=== PATIENT | female | born 1985 | race African-American/Black ===

== ENCOUNTER 2018-07-03 23:34 | Emergency (ER) | payer SELFPAY ==
[2018-07-04] MEDS ORDERED: Ketorolac Tromethamine 30 MG/ML VIAL ONE (00:29)
== END 2018-07-04 00:55 | disposition home or self-care (01) ==
LOC: ERS 23:34
DX: J01.90 Acute sinusitis, unspecified (principal)
CPT/HCPCS: 96372; J1885

== ENCOUNTER 2019-04-12 23:50 | Emergency (ER) | payer SELFPAY ==
[2019-04-13] MEDS ORDERED: Lidocaine 1% w/Epinephrine 1:100K 20 ML VIAL ONE (00:15)
== END 2019-04-13 00:54 | disposition home or self-care (01) ==
LOC: ERS 23:50
DX: L03.032 Cellulitis of left toe (principal)
CPT/HCPCS: 10060; J2001

== ENCOUNTER 2019-06-15 23:39 | Emergency (ER) | payer SELFPAY ==
[2019-06-16] MEDS ORDERED: Lidocaine 1% (PF) 30 ML VIAL ONE
== END 2019-06-16 00:10 | disposition home or self-care (01) ==
LOC: ERS 23:39
DX: L03.032 Cellulitis of left toe (principal)
CPT/HCPCS: 99283; J2001

== ENCOUNTER 2020-07-06 23:21 | Emergency (ER) | payer SELFPAY ==
[2020-07-06] MEDS ORDERED: Lidocaine 1% w/Epinephrine 1:100K 20 ML VIAL ONE (23:55)
[2020-07-06] MEDS ORDERED: Lidocaine 1% PF 5 ML VIAL ONE (23:56)
[2020-07-06] MEDS ORDERED: Lidocaine 1% (PF) 30 ML VIAL ONE (23:56)
[2020-07-07] MEDS ORDERED: HYDROcodone/Acetaminophen 10/325 mg Tablet ONE (00:08)
[2020-07-07] MEDS ORDERED: Lidocaine 1% PF 5 ML VIAL ONE ×2 (00:08→00:09)
[2020-07-07] MEDS ORDERED: Lidocaine 1% w/Epinephrine 1:100K 20 ML VIAL ONE (00:08)
[2020-07-07] MEDS ORDERED: Ibuprofen 800 MG TAB ONE (00:44)
== END 2020-07-07 00:50 | disposition home or self-care (01) ==
LOC: ERS 23:21
DX: K03.81 Cracked tooth (principal); K04.7 Periapical abscess without sinus; K02.9 Dental caries, unspecified; D57.00 Hb-SS disease with crisis, unspecified
CPT/HCPCS: 41800; J2001

== ENCOUNTER 2021-08-17 18:11 | Emergency (ER) | payer SELFPAY ==
[2021-08-17] MEDS ORDERED: Ketorolac Tromethamine 30 MG/ML VIAL ONE (19:28)
[2021-08-17] MEDS ORDERED: HYDROcodone/Acetaminophen 10/325 mg Tablet ONE (19:28)
[2021-08-17] MEDS ORDERED: Ondansetron ODT 4 MG TAB ONE (19:33)
== END 2021-08-17 19:55 | disposition home or self-care (01) ==
LOC: ERS 18:11
DX: K02.9 Dental caries, unspecified (principal)
CPT/HCPCS: 96372; 99282; J1885; Q0162

== ENCOUNTER 2024-05-10 23:05 | Emergency (ER) | payer SELFPAY ==
[2024-05-10] MEDS ORDERED: Lidocaine 1% w/Epinephrine 1:100K 20 ML VIAL ONE (23:23)
[2024-05-10] MEDS ORDERED: Boostrix 0.5 ML (Tdap) VIAL (>/=7 yrs of age) ONE (23:38)
[2024-05-10] MEDS ORDERED: Bacitracin 1 PK ONE (23:39)
== END 2024-05-10 23:46 | disposition home or self-care (01) ==
LOC: ERS 23:05
DX: S71.112A Laceration without foreign body, left thigh, initial encounter (principal); Z23 Encounter for immunization; W26.0XXA Contact with knife, initial encounter
CPT/HCPCS: 12001; 90471; 90715

== ENCOUNTER 2024-09-30 18:03 | Emergency (ER) | payer SELFPAY ==
[2024-09-30] MEDS ORDERED: Acetaminophen 500 MG TAB ONE (18:37)
[2024-09-30] MEDS ORDERED: Ibuprofen 800 MG TAB ONE (18:38)
[2024-09-30 19:55] LABS: #Basophils Less than 0.03 10x3/uL (0.0-0.2); #Eosinophils Less than 0.03 10x3/uL (0.0-0.7); %Basophils 0.4 % (0.0-1.0); %Eosinophils 0.2 % (0.0-10.0); %Lymphocytes 16.8 % (21.0-51.0); %Monocytes 10.3 % (0.0-10.0); %Neutrophils 72.1 % (42.0-75.0); Hematocrit 25.7 % (36.0-47.0); Hemoglobin 7.7 g/dL (12.0-16.0); Mean Corpuscular Volume 63.3 fL (78.0-98.0); Platelet Count 362 10x3/uL (130-400); RBC Distribution Width 20.4 % (11.5-14.5); Red Blood Cell (RBC) Count 4.06 mill/uL (4.20-5.40); Reflex for Review?? YES
[2024-09-30] MEDS ORDERED: Dexamethasone 10 MG/ML VIAL ONE (19:58)
[2024-09-30] MEDS ORDERED: Metoclopramide HCl 10 MG (2 mL) VIAL ONE (19:58)
[2024-09-30] MEDS ORDERED: diphenhydrAMINE 50 MG/ML VIAL ONE (19:58)
[2024-09-30 20:09] LABS: Bacteria/HPF 2+ HPF (None Seen); Bilirubin Negative (Negative); Blood, Urine Negative (Negative); CAUTI Indications for Culture Fever or rigors; Clarity Clear (Clear); Glucose, Urine (Dipstick) Normal (Negative); Ketone, Urine Trace mg/dL (Negative); Leukocyte 500 Leu/uL (Negative); Nitrite 2+ (Negative); Protein, Urine (Dipstick) Negative (Neg-Trace); RBC/HPF 0-3 HPF (0-3); Specific Gravity, Urine 1.014 (1.002-1.036); Squamous Epithelial 0-3 HPF (0-3); Urobilinogen Normal mg/dL (Less than 2); WBC/HPF 21-50 HPF (0-3); pH, Urine 5.5 (5.0-9.0)
[2024-09-30 20:12] LABS: BHCG - Serum Negative (NEGATIVE); Pregs Control Background? CLEAR/WHITE (CLR/WHITE); Pregs Control Bar Appear? YES (CONTROL BAR)
[2024-09-30 20:13] LABS: Urine Culture Reflex Yes Yes
[2024-09-30 20:13] LABS: ALT (SGPT) 7 U/L (8-55); AST (SGOT) 15 U/L (5-34); Albumin 3.5 g/dL (3.5-5.0); Alkaline Phosphatase 54 U/L (40-110); Anion Gap 13 mmol/L (10-20); BUN (Urea Nitrogen) 6 mg/dL (7.0-18.7); Bilirubin, Total 0.4 mg/dL (0.2-1.2); Calc. Creatinine Clearance 0 mL/min (70-130); Calcium 8.8 mg/dL (7.8-10.44); Carbon Dioxide 18 mmol/L (22-29); Chloride 103 mmol/L (98-107); Estimated GFR 104; Glucose 99 mg/dL (70-105); Potassium 3.6 mmol/L (3.5-5.1); Protein, Total 8.5 g/dL (6.0-8.3); Sodium 130 mmol/L (136-145)
[2024-09-30 20:29] LABS: Anisocytosis MARKED = >30 cells HPF (0-5); Hypochromia SLIGHT = 6-15 cells HPF (0-5); Microcytosis MODERATE=15-30 cells HPF (0-5); Ovalocytes SLIGHT = 2-5 cells HPF (0-1); Platelet Adequacy Comment Platelets Normal; Polychromasia SLIGHT = 2-3 cells HPF (0-2); Schistocytes SLIGHT = 2-5 cells HPF (0-1); Target Cells SLIGHT = 2-5 cells HPF (0-1)
[2024-09-30] MEDS ORDERED: cefTRIAXone (ROCEPHIN) 1 GM VIAL ONE (20:38)
== END 2024-09-30 21:10 | disposition home or self-care (01) ==
LOC: ERS 18:03
DX: D64.9 Anemia, unspecified (principal); N39.0 Urinary tract infection, site not specified
CPT/HCPCS: 36415; 71045; 80053; 81001; 83605; 84703; 85025; 85060; 87077; 87086; 87186; 87428; 96365; 96375; J0696; J1100; J1200; J2765